=== PATIENT | male | born 1955 | race Caucasian/White ===

== ENCOUNTER 2016-08-18 11:56 | Emergency (ER) | payer OTHER ==
[~2016-08-18] VITALS: Ht 172.7 cm; Wt 70.5 kg
[~2016-08-18 11:56] MED LIST: CIPR500T4 PO; TAMS-14 PO; TRAM50TA2 PO
[2016-08-18 12:00] VITALS: Ht 172.7 cm; Wt 70.5 kg
[2016-08-18] MEDS ORDERED: KETOROLAC 30 MG INJ IM STA (13:22)
[2016-08-18] MEDS ORDERED: predniSONE 20 MG TAB PO ONE (13:30)
[2016-08-18] MEDS ORDERED: TRAM50TA2 PO (13:58)
[2016-08-18] MEDS ORDERED: PRED20TA PO (13:58)
[2016-08-18] MEDS ORDERED: NAPR-260 PO (13:58)
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
== END 2016-08-18 14:20 | disposition home or self-care (01) ==
LOC: FTE 11:56
DX: M79.605 Pain in left leg (principal); M54.42 Lumbago with sciatica, left side; I10 Essential (primary) hypertension
CPT/HCPCS: 96372; 99284; J1885; J7512

== ENCOUNTER 2016-09-22 11:08 | Inpatient (IN) | payer SELFPAY ==
[~2016-09-22] VITALS: Ht 170.2 cm; Wt 69.4 kg
[2016-09-22] VITALS (7 sets, daily range): BP systolic 108–127; BP diastolic 60–73; PULSE 51–60; RESP 16–19; TEMP 98; Ht 170.2 cm; Wt 69.4 kg
[~2016-09-22 11:08] MED LIST changes: +NAPR-260 PO; +PRED20TA PO
[2016-09-22] MEDS ORDERED: LIDOCAINE/MYLANTA 40 ML BTL PO STA (11:36)
[2016-09-22] MEDS ORDERED: SOD CHLORIDE 0.9% 1,000 ML IV STA (11:36)
[2016-09-22] MEDS ORDERED: KETOROLAC 15 MG INJ IV STA (11:36)
[2016-09-22] MEDS ORDERED: BELLADONNA/PHENOBARBITAL TAB PO STA (11:36)
[2016-09-22] MEDS ORDERED: ASPIRIN 81 MG TAB PO ONE (12:00)
--- NOTE | 2016-09-22 12:00 | ERA ---
ER Documentation Chief Complaint Date/Time DATE: 09/22/16 TIME: 11:56 Chief Complaint intermittent cp this am with nosebleed. cp resolved at this time. HPI 61-year-old man complains of dull aching left-sided chest pain this morning lasting for about 20 minutes intermittently which began while he was in the car and then returned while having breakfast with his . Pain described as 6 out of 10 intensity. He denies shortness of breath, no loss of consciousness or dizziness, no diaphoresis, no vomiting or diarrhea. Patient denies abdominal pain, no cough, no fevers or chills. ROS All systems reviewed and are negative except as per history of present illness. Medications Home Meds Active Scripts Prednisone* (Prednisone*) 20 Mg Tab, 40 MG PO DAILY for 4 Days, TAB Prov:TEN WATERS PA-C 08/18/16 Naproxen* (Naprosyn*) 500 Mg Tablet, 500 MG PO BID Y for PAIN AND/OR INFLAMMATION, #30 TAB Prov:TEN WATERS PA-C 08/18/16 Tramadol HCl (Tramadol HCl) 50 Mg Tablet, 50 MG PO Q4 Y for PAIN, #20 TAB Prov:TEN WATERS PA-C 08/18/16 Tramadol HCl (Tramadol HCl) 50 Mg Tablet, 50 MG PO Q4 Y for PAIN, #20 TAB Prov:PAIGE SLAUGHTER 01/17/16 Tamsulosin Hcl* (Flomax*) 0.4 Mg Cap.er.24h, 0.4 MG PO QPM, #10 CAP Prov:PAIGE SLAUGHTER 01/17/16 Ciprofloxacin Hcl* (Ciprofloxacin Hcl*) 500 Mg Tablet, 500 MG PO BID for 3 Days , TAB Prov:PAIGE SLAUGHTER 01/17/16 Allergies Allergies: Coded Allergies: No Known Allergy (Unverified , 01/17/16) PMhx/Soc Hypertension, diabetes mellitus, hypercholesterolemia History of Surgery: Yes (bilat shoulder, neck and back sx ) Anesthesia Reaction: No Hx Neurological Disorder: No Hx Respiratory Disorders: No Hx Cardiac Disorders: Yes (HTN, high cholesterol) Hx Psychiatric Problems: No Hx Miscellaneous Medical Probl: No Hx Alcohol Use: No Hx Substance Use: No Hx Tobacco Use: No FmHx Family History: No diabetes Physical Exam Vitals Vital Signs Date Time Temp Pulse Resp B/P Pulse Ox O2 Delivery O2 Flow Rate FiO2 09/22/16 11:09 98.0 73 20 126/62 98 Physical Exam GENERAL: Well-developed, well-nourished, well-hydrated, in no apparent distress , looks nontoxic in appearance HEENT: Moist mucous membranes, pink conjunctiva, no cervical spine tenderness or step-off deformities, no goiter, no jaundice or icterus, extraocular movements intact without pain. No submandibular induration, and no pharyngeal erythema NEURO: Alert and oriented 3, cranial nerves II through XII intact bilaterally, pupils equal round reactive to light, no focal deficits or facial asymmetry, sensation intact distally Strength 5/5 in upper and lower extremities bilaterally CARDIAC: Regular rate and rhythm, no murmurs rubs or gallops LUNGS: Clear bilaterally no wheezing crackles or stridor ABDOMEN: Soft nontender, no guarding, no rigidity, no rebound, no psoas sign no obturator sign. Normoactive bowel sounds SKIN: Warm and dry to touch, no abrasions, contusions, or hematomas, no lacerations, no ecchymosis, no target lesions, and without ulcers EXTREMITIES: No clubbing cyanosis or edema, calves are bilaterally symmetrical, no Homans sign, no popliteal cord sign. Distal pulses equal and bilateral PSYCH: Normal affect without agitation or irritability Result Diagram: 09/22/16 1220 Results 24 hrs Laboratory Tests Test 09/22/16 12:20 White Blood Count 5.110^3/ul Red Blood Count 4.6210^6/ul Hemoglobin 14.2g/dl Hematocrit 41.2% Mean Corpuscular Volume 89.2fl Mean Corpuscular Hemoglobin 30.7pg Mean Corpuscular Hemoglobin Concent 34.5g/dl Red Cell Distribution Width 12.7% Platelet Count 53603^3/UL Mean Platelet Volume 9.8fl Neutrophils % 61.1% Lymphocytes % 30.3% Monocytes % 6.4% Eosinophils % 1.2% Basophils % 0.6% Nucleated Red Blood Cells % 0.0/100WBC Neutrophils # 3.110^3/ul Lymphocytes # 1.610^3/ul Monocytes # 0.310^3/ul Eosinophils # 0.110^3/ul Basophils # 0.010^3/ul Nucleated Red Blood Cells # 0.010^3/ul Current Medications Medications (Trade) Dose Ordered Sig/Janine Route PRN Reason Start Time Stop Time Status Last Admin Dose Admin Sodium Chloride (NS) 1,000 ml @ 1,000 mls/hr Q1H STAT IV 09/22/16 11:36 09/22/16 12:35 DC 09/22/16 12:14 Miscellaneous Medication (Gi Cocktail (2)) 40 ml ONCE STAT PO 09/22/16 11:36 09/22/16 11:37 DC 09/22/16 12:13 Belladonna/ Phenobarbital () 2 tab ONCE STAT PO 09/22/16 11:36 09/22/16 11:37 DC 09/22/16 12:14 Ketorolac Tromethamine (Toradol) 15 mg ONCE STAT IV 09/22/16 11:36 09/22/16 11:38 DC 09/22/16 12:14 Aspirin (Aspirin) 324 mg ONCE ONCE PO 09/22/16 12:00 09/22/16 12:01 DC 09/22/16 12:13 Procedures/MDM IV line was established patient was placed on monitor technician rhythm strip revealed a sinus rhythm at about 80 bpm with upright P and T waves. Patient was afebrile. EKG performed, read by me: 63 bpm, normal sinus rhythm, normal axis, no acute ST segment changes, narrow QRS complex, with good R-wave progression in precordial leads. Chest X-ray 1V Interpreted by me: Soft Tissue: No acute abnormalities Bones: No acute abnormalities Mediastinum/Cardiac Silhouette/Lungs: No acute abnormalities I administered 500 cc normal saline intravenously, Toradol 15 mg IV, aspirin 324 mg for cardioprotective measures, and a GI cocktail 30 cc p.o. with good response. CBC and electrolytes are normal, liver function tests were normal, troponin was negative. Given the patient's symptoms and his past medical history he will be admitted to telemetry setting for continued medical management cardiology consultation. Departure Diagnosis: Primary Impression: Chest pain Qualified Code: R07.9 - Chest pain, unspecified type Condition: JERRY Benitez MD Sep 22, 2016 12:00
--- NOTE | 2016-09-22 12:09 | RADRPT ---
PROCEDURE: XR Chest. CLINICAL INDICATION: Abdominal Pain. Dyspnea. TECHNIQUE: Single frontal chest x-ray. COMPARISON: None. FINDINGS: The lungs are clear of acute infiltrates, edema, effusions, or masses.. The cardiomediastinal silho uette is unremarkable. The osseous structures are intact. Cervical fixation hardware is present. IMPRESSION: No acute cardiopulmonary disease. RPTAT: QQ .Giovanni Thompson MD, MD Date Time Electronically viewed and signed by .Giovanni Thompson MD, MD on 09/22/2016 12:09 .L/
[2016-09-22 12:30] LABS: ADD SCAN DIFF NO
[2016-09-22 12:35] LABS: BASOPHILS % 0.6 % (0.0-2.0); EOSINOPHILS # 0.1 10^3/ul (0.0-0.5); EOSINOPHILS % 1.2 % (0.0-7.0); HEMATOCRIT 41.2 % (42.0-52.0); HEMOGLOBIN 14.2 g/dl (14.0-18.0); LYMPHOCYTES # 1.6 10^3/ul (0.8-2.9); LYMPHOCYTES % 30.3 % (15.0-51.0); MEAN CORPUSCULAR HEMOGLOBIN 30.7 pg (29.0-33.0); MEAN CORPUSCULAR HGB CONC 34.5 g/dl (32.0-37.0); MEAN CORPUSCULAR VOLUME 89.2 fl (82.0-101.0); MEAN PLATELET VOLUME 9.8 fl (7.4-10.4); MONOCYTE # 0.3 10^3/ul (0.3-0.9); MONOCYTES % 6.4 % (0.0-11.0); NEUTROPHIL # 3.1 10^3/ul (1.6-7.5); NEUTROPHILS % 61.1 % (39.0-77.0); PLATELET COUNT 217 10^3/UL (140-415); RED BLOOD COUNT 4.62 10^6/ul (4.70-6.10); RED CELL DISTRIBUTION WIDTH 12.7 % (11.5-14.5); WHITE BLOOD COUNT 5.1 10^3/ul (4.8-10.8)
[2016-09-22 13:13] LABS: ALANINE AMINOTRANSFERASE 33 IU/L (13-69); ALBUMIN 4.5 g/dl (3.3-4.9); ALBUMIN/GLOBULIN RATIO 2.14; ALKALINE PHOSPHATASE 49 IU/L (42-121); ANION GAP 14 (8-16); ASPARTATE AMINO TRANSFERASE 19 IU/L (15-46); BILIRUBIN,INDIRECT 0.8 mg/dl (0-1.1); BILIRUBIN,TOTAL 0.8 mg/dl (0.2-1.3); BLOOD UREA NITROGEN 16 mg/dl (7-20); CALCIUM 9.2 mg/dl (8.4-10.2); CARBON DIOXIDE 24 mmol/L (21-31); CHLORIDE 105 mmol/L (97-110); CREATININE 0.64 mg/dl (0.61-1.24); GLUCOSE 280 mg/dl (70-220); SODIUM 139 mmol/L (135-144); TOTAL PROTEIN 6.6 g/dl (6.1-8.1)
[2016-09-22 13:26] LABS: TROPONIN-I < 0.012 ng/ml (0.00-0.12)
[2016-09-22] MEDS ORDERED: morphine 2 MG INJ IV PRN (15:00)
[2016-09-22] MEDS ORDERED: hydrALAzine 20 MG INJ IV PRN (15:00)
[2016-09-22] MEDS ORDERED: NACL 0.9% 3 ML SYG IV SCH (15:00)
[2016-09-22] MEDS ORDERED: BISACODYL (EC) 5 MG TAB PO PRN (15:00)
[2016-09-22] MEDS ORDERED: ONDANSETRON 4 MG INJ IV PRN (15:00)
[2016-09-22] MEDS ORDERED: ZOLPIDEM 5 MG TAB PO PRN (15:00)
[2016-09-22] MEDS ORDERED: HYDROCODONE/APAP (5/325) TAB PO PRN (15:00)
[2016-09-22] MEDS ORDERED: NITROGLYCERIN (SL) 0.4 MG TAB SL PRN (15:00)
[2016-09-22] MEDS ORDERED: MAGNESIUM HYDROXIDE 30ML CUP PO PRN (15:00)
[2016-09-22] MEDS ORDERED: LORAZEPAM 0.5 MG TAB PO PRN (15:00)
[2016-09-22] MEDS ORDERED: ACETAMINOPHEN 325 MG TAB PO PRN (15:00)
[2016-09-22] MEDS ORDERED: GLUCOSE GEL 15 GRAM TUBE BUCCAL PRN (15:30)
[2016-09-22] MEDS ORDERED: GLUCOSE GEL 15 GRAM TUBE PO PRN ×2 (15:30)
[2016-09-22] MEDS ORDERED: DEXTROSE 50% 50 ML SYRINGE IV PRN ×2 (15:30)
[2016-09-22] MEDS ORDERED: GLUCAGON 1 MG INJ IM PRN (15:30)
[2016-09-22 16:07] LABS: THYROID STIMULATING HORMONE 1.17 MIU/L (0.465-4.680)
[2016-09-22] MEDS: INSULIN ASPART [NOVOLOG] 3 ML PEN SC SCH ×3 (18:27→21:12)
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
[2016-09-22 19:57] LABS: CREATINE KINASE 110 IU/L (23-200)
[2016-09-22] MEDS ORDERED: INSULIN GLARGINE [LANtus] 3 ML PEN SC SCH (20:00)
[2016-09-22 20:16] LABS: CK-MB 1.29 ng/ml (0.0-2.4); TROPONIN-I < 0.012 ng/ml (0.00-0.12)
[2016-09-22] MEDS ORDERED: ATORVASTATIN 20 MG TAB PO SCH (21:00)
[2016-09-22] MEDS ORDERED: TAMSULOSIN (SR) 0.4 MG CAP PO SCH (21:00)
[2016-09-22] MEDS: METOPROLOL 25 MG TAB PO SCH (21:00)
[2016-09-22] MEDS: FAMOTIDINE 20 MG TAB PO SCH (21:05)
[2016-09-23] VITALS (9 sets, daily range): BP systolic 116–133; BP diastolic 70–77; PULSE 53–61; RESP 19–20
[2016-09-23] MEDS ORDERED: ACCU-CHEK XX SCH (02:00)
[2016-09-23 06:57] LABS: ADD SCAN DIFF NO
[2016-09-23 07:05] LABS: BASOPHILS % 0.6 % (0.0-2.0); EOSINOPHILS # 0.1 10^3/ul (0.0-0.5); EOSINOPHILS % 1.9 % (0.0-7.0); HEMATOCRIT 41.3 % (42.0-52.0); HEMOGLOBIN 14.3 g/dl (14.0-18.0); LYMPHOCYTES # 2.2 10^3/ul (0.8-2.9); LYMPHOCYTES % 42.4 % (15.0-51.0); MEAN CORPUSCULAR HEMOGLOBIN 30.8 pg (29.0-33.0); MEAN CORPUSCULAR HGB CONC 34.6 g/dl (32.0-37.0); MEAN PLATELET VOLUME 9.7 fl (7.4-10.4); MONOCYTE # 0.4 10^3/ul (0.3-0.9); MONOCYTES % 6.7 % (0.0-11.0); NEUTROPHIL # 2.5 10^3/ul (1.6-7.5); PLATELET COUNT 210 10^3/UL (140-415); RED BLOOD COUNT 4.64 10^6/ul (4.70-6.10); RED CELL DISTRIBUTION WIDTH 12.8 % (11.5-14.5); WHITE BLOOD COUNT 5.2 10^3/ul (4.8-10.8)
[2016-09-23 07:18] LABS: ALBUMIN 3.9 g/dl (3.3-4.9); ALBUMIN/GLOBULIN RATIO 1.85; CREATININE 0.54 mg/dl (0.61-1.24); INR 1.05; PARTIAL THROMBOPLASTIN TIME 25.8 Sec (25.0-35.0); POTASSIUM 4.3 mmol/L (3.5-5.1); PROTIME 13.7 Sec (12.2-14.2); PT RATIO 1.1
[2016-09-23] MEDS: INSULIN ASPART [NOVOLOG] 3 ML PEN SC SCH ×3 (07:24→11:40)
[2016-09-23 07:29] LABS: CHOL/HDL RATIO 2.6 RATIO; CHOLESTEROL 123 mg/dl (100-200); CREATINE KINASE 72 IU/L (23-200); HDL CHOLESTEROL 46 mg/dl (30-78); PHOSPHORUS 3.3 mg/dl (2.5-4.9); TRIGLYCERIDES 81 mg/dl (0-149)
[2016-09-23 07:35] LABS: CK-MB 0.96 ng/ml (0.0-2.4); TROPONIN-I < 0.012 ng/ml (0.00-0.12)
[2016-09-23] MEDS: FAMOTIDINE 20 MG TAB PO SCH (08:15)
[2016-09-23] MEDS: METOPROLOL 25 MG TAB PO SCH (08:16)
[2016-09-23] MEDS ORDERED: ENOXAPARIN 40 MG/0.4 ML SYG SC SCH (09:00)
[2016-09-23] MEDS ORDERED: ASPIRIN 81 MG TAB PO SCH (09:00)
[2016-09-23] MEDS ORDERED: METO-448 PO (10:36)
[2016-09-23] MEDS ORDERED: LANT3I SC (10:36)
[2016-09-23] MEDS ORDERED: ATOR20TA65 PO (10:36)
[2016-09-23] MEDS ORDERED: NOVO3I SC (10:36)
[2016-09-23] MEDS ORDERED: ASPI81TA3 PO (10:36)
--- NOTE | 2016-09-23 10:44 | PDOCDIS ---
Discharge Instructions DIAGNOSIS Discharge Diagnosis: 1. chest pain 2. diabetes 3. hypertension CONDITION Patient Condition: Stable FOLLOW UP/APPOINTMENTS Appointments 1. Follow up with your primary care provider in one week HILTON ZHOU Sep 23, 2016 10:44
[2016-09-23 10:55] LABS: BARBITURATES Positive (NEGATIVE)
[2016-09-23 10:56] LABS: BENZODIAZEPINES Negative (NEGATIVE); CANNABINOIDS Negative (NEGATIVE); COCAINE Negative (NEGATIVE); OPIATES Negative (NEGATIVE)
[2016-09-23] MEDS ORDERED: INSULIN ASPART [NOVOLOG] 3 ML PEN SC SCH (11:50)
--- NOTE | 2016-09-23 16:23 | RADRPT ---
Echocardiogram Report Patient Name: ROBER ARAMBULA Gender: Male Date: 1955 Study Date: 23-Sep-2016 Assembler Tractor: Audrey Ross [facility] Location: [id number] Ref. Physician: JACQUELINE ZARATE Quality: Good Procedures: Transthoracic echocardiogram with complete 2D, M-Mode, and doppler examination. Indications: Chest Pain. 2D/M Mode Doppler Measurement Value Normal Ranges Measurement Value Normal Ranges LVIDd 2D 4.4 3.5 - 5.6 cm AV Peak Yamil 1.4 m/sec LVIDs 2D 2.1 2.1 - 4.1 cm AV Peak PG 7.6 mmHg LVPWd 2D 1.0 0.6 - 1.1 cm LVOT Peak Yamil 1.0 m/sec IVSd 2D 1.0 0.6 - 1.1 cm LVOT Peak PG 4.1 mmHg AoR Diam 2D 2.7 2.0 - 3.7 cm MV E Peak Yamil 0.9 m/sec LA Dimen 2D 3.0 2.3 - 4.0 cm MV A Peak Yamil 1.0 m/sec MV Decel Time 222 msec TR Peak PG 13.0 mmHg RVSP 16.0 mmHg Findings Left Ventricle: Normal left ventricular systolic function. Normal left ventricular cavity size. Normal left ventricular wall thickness. Ejection fraction is visually estimated at 55 %. Tissue Doppler/Mitral Doppler indices are within normal limits. Right Ventricle: Normal right ventricular size. Normal right ventricular systolic function. Left Atrium: The left atrium is normal in size. Right Atrium: The right atrium is normal in size. Mitral Valve: Mitral valve leaflets appear mildly thickened. Trace mitral regurgitation. Aortic Valve: Normal appearance of the aortic valve. No significant aortic stenosis or insufficiency. Tricuspid Valve: Normal appearance and function of the tricuspid valve with trace physiologic regurgitation. Normal right ventricular systolic pressure. Estimated peak PA systolic pressure 16 mmHg. Pulmonic Valve: Normal pulmonic valve appearance. Pericardium: Normal pericardium with no significant pericardial effusion. Aorta: Normal aortic root. IVC: Normal size and normal respiratory collapse consistent with normal right atrial pressure. Conclusions Normal left ventricular systolic function. Normal left ventricular cavity size. Normal left ventricular wall thickness. Ejection fraction is visually estimated at 55 %. Tissue Doppler/Mitral Doppler indices are within normal limits. No significant valvular stenosis or regurgitation seen. Estimated peak PA systolic pressure 16 mmHg based on RA pressure of 3 mmHg. Electronically Signed By: Kanu Burkett 23-Sep-2016 16:22:15 -0700 Patient Name: ROBER ARAMBULA Study Date: 23-Sep-[id number]
[2016-09-23] MEDS ORDERED: INSULIN GLARGINE [LANtus] 3 ML PEN SC SCH (20:00)
== END 2016-09-23 17:41 | disposition home or self-care (01) | DRG 313 ==
LOC: E/R 11:08 → TEL 13:01
PROVIDERS: ADMIT Family Medicine; ATTEND Family Medicine
DX: R07.9 Chest pain, unspecified (principal); I10 Essential (primary) hypertension; E11.9 Type 2 diabetes mellitus without complications; E78.5 Hyperlipidemia, unspecified; N40.0 Benign prostatic hyperplasia without lower urinary tract symptoms; R04.0 Epistaxis
CPT/HCPCS: 36415; 71010; 80053; 80061; 80307; 82550; 82553; 82962; 83036; 83690; 83735; 84100; 84153; 84154; 84439; 84443; 84484; 85025; 85610; 85730; 93005; 93306; 96374; J1815; J1885; J7030

== ENCOUNTER 2018-01-18 07:33 | Emergency (ER) | END 2018-01-18 08:37 | disposition home or self-care (01) ==

== ENCOUNTER 2018-06-05 08:29 | Day surgery (SDC) | payer OTHER ==
[~2018-06-05] VITALS: Ht 167.6 cm; Wt 70.7 kg
[~2018-06-05 08:29] MED LIST changes: +ACET500C5 PO; +AMOX500C2 PO; +ASPI-831 PO; +ATOR20TA65 PO; -CIPR500T4 PO; +LANT3I SC; +METO-448 PO; -NAPR-260 PO; +NAPR-985 PO; +NOVO3I SC; -PRED20TA PO
[2018-06-05 09:18] VITALS: Ht 167.6 cm; Wt 70.7 kg
[2018-06-05] MEDS ORDERED: GLIP10TA14 PO (09:26)
[2018-06-05] MEDS ORDERED: SITA1TAB5 PO (09:26)
[2018-06-05] MEDS ORDERED: SIMV20TA2 PO (09:26)
[2018-06-05] MEDS ORDERED: LISI-313 PO (09:26)
[2018-06-05] MEDS ORDERED: LIDOCAINE 4% SOLUTION 50 ML BTL ONE (09:35)
[2018-06-05 09:47] VITALS: BP 122/74; PULSE 56; RESP 14
[2018-06-05] MEDS ORDERED: FENTAnyl 50 MCG/ML VIAL ONE (11:37)
[2018-06-05] MEDS ORDERED: MIDAZOLAM 1 MG/ML 2 ML INJ ONE ×2 (11:37)
== END 2018-06-05 12:23 | disposition home or self-care (01) ==
LOC: GIL 08:29
PROVIDERS: ATTEND Internal Medicine Gastroenterology
DX: Z12.11 Encounter for screening for malignant neoplasm of colon (principal); K29.50 Unspecified chronic gastritis without bleeding; D12.4 Benign neoplasm of descending colon; K64.1 Second degree hemorrhoids; K20.8 Other esophagitis; K29.30 Chronic superficial gastritis without bleeding; E11.9 Type 2 diabetes mellitus without complications; I10 Essential (primary) hypertension
CPT/HCPCS: 43239; 45380; 88305; 88312; J2250; J3010